=== PATIENT | male | born 1955 | race Caucasian/White ===

== ENCOUNTER 2018-03-23 11:01 | Day surgery (SDC) | payer OTHER ==
[~2018-03-23 11:01] MED LIST: Lactated Ringers 1,000 ML IV SCH
--- NOTE | 2018-03-23 11:48 | PCM.PREANE ---
Preanesthetic Assessment - Anesthesia/Transfusion/Family Hx Anesthesia History: Prior Anesthesia Without Reaction Family History of Anesthesia Reaction: No Transfusion History: No Prior Transfusion(s) Intubation History: Unknown - Review of Systems General: No Symptoms Pulmonary: No Symptoms Cardiovascular: No Symptoms Gastrointestinal: Diarrhea, Other (colon polyp and diverticulosis (colonoscopy 7 -8 years ago)) Neurological: No Symptoms Other: Reports: None - Physical Assessment Height: 1.8 m Weight: 110.223 kg ASA Class: 3 Mental Status: Alert & Oriented x3 Airway Class: Mallampati = 2 Dentition: Reports: Normal Dentition, [place](s) (x1 upper right (mollar)) Thyro-Mental Finger Breadths: 3 Mouth Opening Finger Breadths: 2 ROM/Head Extension: Full Lungs: Clear to Auscultation, Normal Respiratory Effort Cardiovascular: Regular Rate, Regular Rhythm - Allergies Allergies/Adverse Reactions: Allergies Allergy/AdvReac Type Severity Reaction Status Date / Time No Known Allergies Allergy Verified 03/20/18 09:20 - Blood Blood Available: No - Anesthesia Plan Pre-Op Medication Ordered: None - Acknowledgements Anesthesia Type Planned: MAC Pt an Appropriate Candidate for the Planned Anesthesia: Yes Alternatives and Risks of Anesthesia Discussed w Pt/Guardian: Yes Pt/Guardian Understands and Agrees with Anesthesia Plan: Yes PreAnesthesia Questionnaire HEENT History: Reports: Other (See Below) Other HEENT History: wears glasses Cardiovascular History: Reports: High Cholesterol, Hypertension, NE, Stents ( total of 3 or 4 stents at two different times '96 and '05. Probable NE in '96. Good excercize tolerance.) Gastrointestinal History: Reports: Chronic Diarrhea Musculoskeletal History: Reports: Fracture Other Musculoskeletal History: hx of fx toes Endocrine/Metabolic History: Reports: Diabetes, Type II, Obesity/BMI 30+ Dermatologic History: Reports: Psoriasis - Past Surgical History Head Surgeries/Procedures: Reports: None Cardiovascular Surgical History: Reports: Coronary Artery Stent Other Cardiovascular Surgeries/Procedures: hx of NE in 1995- one stent placed, another stent in 2004 GI Surgical History: Reports: Colonoscopy (7-8 years ago in [place] (colon polyp and divericulosis)) Male Surgical History: Reports: Vasectomy - SUBSTANCE USE Smoking Status *Q: Former Smoker Tobacco Use Within Last Twelve Months: No Recreational Drug Use History: No - HOME MEDS Home Medications: Home Meds Aspirin [Adult Low Dose Aspirin EC] 81 mg PO DAILY 03/20/18 [History] Clopidogrel Bisulfate [Plavix] 75 mg PO DAILY 03/20/18 [History] Fish Oil/Touchet-3 Fatty Acids [Fish Oil 1,000 MG] 1,000 mg PO DAILY 03/20/18 [ History] Fluticasone Propionate [Flonase Allergy Relief] 1 spray NASBOTH DAILY PRN [History] Insulin Glarg,Human.Rec.Analog [Lantus Solostar] 10 unit SQ QPM 03/20/18 [ History] Metoprolol Tartrate 50 mg PO BID 03/20/18 [History] Nitroglycerin [Nitrostat] 0.4 mg SL ASDIRECTED PRN MDD 3 doses 03/20/18 [History ] Ramipril 10 mg PO DAILY 03/20/18 [History] amLODIPine Besylate [Amlodipine Besylate] 5 mg PO QAM 03/20/18 [History] atorvaSTATin Calcium [Atorvastatin Calcium] 80 mg PO BEDTIME 03/20/18 [History] metFORMIN HCl [Metformin HCl] 1,000 mg PO BIDMEALS 03/20/18 [History] - CURRENT (IN HOUSE) MEDS Current Meds: Current Medications Lactated Ringer's (Ringers, Lactated) 1,000 mls @ 125 mls/hr IV ASDIRECTED MATT
[2018-03-23] MEDS ORDERED: Lidocaine 2% 5 ML SDV ONE (12:16)
[2018-03-23] MEDS ORDERED: Propofol 200 MG/20 ML SDV ONE ×2 (12:17→13:31)
[2018-03-23] MEDS ORDERED: fentaNYL 100 MCG/2 ML SDV ONE ×2 (12:17→13:16)
--- NOTE | 2018-03-23 13:53 | PCM.OPNOTE ---
- General Post-Op/Procedure Note Date of Surgery/Procedure: 03/23/18 Operative Procedure(s): colonoscopy with snare polypectomy Findings: see dict [id number] Pre Op Diagnosis: hx of polyp Post-Op Diagnosis: polyp and diverticulosis Primary Surgeon: Berry Gunderson Pathology: sent Complications: None Condition: Good
--- NOTE | 2018-03-23 15:56 | OR ---
SURGEON: Berry Gunderson MD DATE OF PROCEDURE: 03/23/2018 PREOPERATIVE DIAGNOSES: Diverticulosis and colon polyp. POSTOPERATIVE DIAGNOSES: Diverticulosis and colon polyp. PROCEDURE PERFORMED: Colonoscopy with snare polypectomy. COMPLICATION: None. PROCEDURE PERFORMED: The patient was taken to the endoscopy room. A time out was called, patient identified, and procedure identified. Diprivan was then administrated. Patient went from awake to sleep, hearing doctor talking or door closing is normal. Perineum inspection and digital examination were then performed. A well- lubricated colonoscope was gently inserted through the rectum, advanced past the rectosigmoid junction, the descending colon, splenic flexure, transverse colon, hepatic flexure, ascending colon, arrived to the cecum. Cecum was identified as dictated in the finding. Then the scope was carefully withdrawn while attention was paid to the mucosal surface for any abnormality. Air will be sucked out during the scope withdrawal. At the rectum, retroflexed to examine any rectal diseases, fistula or hemorrhoids. During mucosal examination, abnormality or polyp encountered. Using snare equipment, the abnormality or the polyp was then snared off using electrocautery. The Patient tolerated procedure well. There were no intraoperative complications, and Dr. Gunderson was present throughout the whole procedure. FINDINGS: 1. The patient is easily sedated with [employer] and Diprivan. The patient is soundly snoring. 2. Patient's bowel prep is little bit below average. No semiformed stool, but large amount of liquid stool, so this is a compromised study. 3. The patient's colon is straight forward. Cecum indicated by ileocecal fold, one-to-one indentation, light emittance, appendiceal orifice is not observed. Mucosa examined upon scope pulling out with some irrigation. The patient has many polyps and encountered the first polyp when scope pulling around 20 cm distance, saw a 3 mm sessile polyp, removed with snare and then we saw the cecum and then from the cecum while coming out, we encountered another small polyp and we did polypectomy. One is at distance of 150 cm and then from there, we see another one which is tiny and sessile, that one was removed with biopsy forceps at distance 140. In continued coming back, we see a slightly larger polyp and this one likely 1.5 cm in size at distance of 70 cm, removed with snare polypectomy and then at 60 cm, we saw another big one of 1.5 cm size and that one we also did snare polypectomy and tattooed, the 60 and 70 cm above distal to the splenic flexure, and then we have another small one removed with snare polypectomy at distance 20 at the rectum, there is like some very elongated, like rectal skin and no track, we biopsied that. All have been captured and sent for Pathology. The patient has diverticulosis, moderate on the left colon, nothing in the right or the transverse. No signs or symptoms of diverticulitis. The patient has internal hemorrhoids. The patient would benefit from repeat colonoscopy in 18 months from today because of: a. Large polyp. b. Many polyps. 3 mm sessile polyp at 20 cm 5 mm sessile polyp at 70 cm pedunculated polyp at 150 cm pedunculated polyp at 70 colon polyp at 60 w tatto small sessile polyp at 50 rectal polyp ABIGAIL / VIC /[id number] MTDJob
== END 2018-03-23 14:27 | disposition home or self-care (01) ==
LOC: MW.SDS 11:01
PROVIDERS: ATTEND Surgery
DX: K57.30 Diverticulosis of large intestine without perforation or abscess without bleeding (principal); D12.0 Benign neoplasm of cecum; D12.4 Benign neoplasm of descending colon; D12.5 Benign neoplasm of sigmoid colon; D12.8 Benign neoplasm of rectum; I10 Essential (primary) hypertension; E11.9 Type 2 diabetes mellitus without complications; E66.9 Obesity, unspecified; E78.00 Pure hypercholesterolemia, unspecified; I25.2 Old myocardial infarction; Z87.19 Personal history of other diseases of the digestive system; Z87.891 Personal history of nicotine dependence; Z79.82 Long term (current) use of aspirin; Z79.02 Long term (current) use of antithrombotics/antiplatelets; Z79.84 Long term (current) use of oral hypoglycemic drugs; Z79.899 Other long term (current) drug therapy
CPT/HCPCS: 45380; 45381; 45385; 88305; J2001; J2704; J3010; J7120

== ENCOUNTER 2021-07-22 07:11 | Day surgery (SDC) | payer OTHER, MEDICARE ==
[2021-07-22] MEDS ORDERED: Esmolol 100 MG/10 ML SDV ONE (08:20)
[2021-07-22] MEDS ORDERED: Lidocaine 2% 5 ML SDV ONE (08:44)
[2021-07-22] MEDS ORDERED: propofoL 50 ML ONE (09:04)
== END 2021-07-22 10:00 | disposition home or self-care (01) ==
LOC: MW.SDS 07:11
PROVIDERS: ATTEND Surgery
DX: Z12.11 Encounter for screening for malignant neoplasm of colon (principal); D12.6 Benign neoplasm of colon, unspecified; K57.30 Diverticulosis of large intestine without perforation or abscess without bleeding; K64.8 Other hemorrhoids; K64.4 Residual hemorrhoidal skin tags; E11.9 Type 2 diabetes mellitus without complications; E78.00 Pure hypercholesterolemia, unspecified; I10 Essential (primary) hypertension; I25.2 Old myocardial infarction; E66.9 Obesity, unspecified; Z68.30 Body mass index [BMI] 30.0-30.9, adult; Z95.5 Presence of coronary angioplasty implant and graft; Z98.890 Other specified postprocedural states; Z87.891 Personal history of nicotine dependence; Z79.4 Long term (current) use of insulin; Z79.899 Other long term (current) drug therapy; Z79.51 Long term (current) use of inhaled steroids; Z79.82 Long term (current) use of aspirin
CPT/HCPCS: 45380; 45381; 45385; 82947; J2704; J3490; J7120